=== PATIENT | female | born 1945 | race Caucasian/White ===

== ENCOUNTER 2019-08-29 02:50 | Observation (INO) ==
[2019-08-29] MEDS ORDERED: *HR* Labetalol 20 MG/4 ML SYRINGE IVP ONE (05:05)
[2019-08-29] MEDS ORDERED: Nitroglycerin 0.4 MG TAB.SUBL SL PRN (05:05)
[2019-08-29] MEDS: *HR* Heparin 5,000 UNIT/ML VIAL SQ SCH ×2 (05:26→17:58)
[2019-08-29] MEDS ORDERED: Naloxone 0.4 MG/ML INJ IVP PRN (05:45)
[2019-08-29] MEDS ORDERED: Acetaminophen 325 MG TABLET PO PRN (05:45)
[2019-08-29 06:33] LABS: Basophils # 0.1 K/mcL (0.0-0.2); Basophils % 0.7 %; Eosinophils % 0.3 %; Hematocrit 40.2 % (35.3-44.9); Hemoglobin 12.8 g/dL (11.5-15.4); Immature Granulocytes % 0.2 % (0-4); Lymphocytes # 3.6 K/mcL (0.6-4.6); Lymphocytes % 34.2 %; Mean Corpuscular HGB Conc 31.8 g/dL (31.6-35.5); Mean Corpuscular Hemoglobin 29.1 pg (28.0-33.3); Mean Corpuscular Volume 91.4 fL (83.0-100.0); Mean Platelet Volume 12.4 fL (9.4-12.4); Monocytes # 0.6 K/mcL (0.0-1.3); Monocytes % 5.6 %; Neutrophils # 6.3 K/mcL (1.6-8.9); Platelet Count 281 K/mcL (140-400); Red Cell Distribution Width 18.6 % (11.5-14.5); White Blood Count 10.6 K/mcL (4.3-11.1)
[2019-08-29 06:36] LABS: INR 1.1; Prothrombin Time 12.9 Seconds (9.4-12.1)
[2019-08-29 06:39] LABS: Activated Partial Thrombo Time 28.9 Seconds (26.0-36.0)
[2019-08-29 07:00] LABS: Troponin I < 0.03 ng/mL (< 0.04)
[2019-08-29 07:02] LABS: BUN/Creatinine Ratio 27 (6-26); Blood Urea Nitrogen 18 mg/dL (8-23); Calcium 9.5 mg/dL (8.6-10.3); Carbon Dioxide 22 mEq/L (23-29); Chloride 109 mEq/L (98-107); Chol/HDL Ratio 3.9 (0-4.9); Cholesterol 157 mg/dL (< 200); Glucose 112 mg/dL (70-105); HDL Cholesterol 40 mg/dL (40-59); LDL Cholesterol,Calculated 102 mg/dL (0-99); Osmolality,Calculated 301 (280-300); Potassium 3.5 mEq/L (3.5-5.1); Sodium 144 mEq/L (136-145); Triglycerides 75 mg/dL (< 150); eGFR For African Americans > 60 (> 60); eGFR For Non-African Americans > 60 (> 60)
[2019-08-29 07:11] LABS: Thyroid Stimulating Hormone 1.373 mcIU/mL (0.340-5.600)
[2019-08-29 08:03] LABS: Estimated Average Glucose 137 mg/dl
[2019-08-29] MEDS ORDERED: *HR* LORazepam 2 MG/ML VIAL IVP PRN ×3 (09:13)
[2019-08-29] MEDS ORDERED: *HR* Promethazine 25 MG/ML VIAL IVP PRN (09:13)
[2019-08-29] MEDS ORDERED: Morphine Sulfate 2 MG/ML SYRINGE IVP ONE (09:13)
[2019-08-29] MEDS: *HR* OxyCODONE Immed Rel 5 MG TABLET PO PRN ×2 (12:28→19:50)
[2019-08-29] MEDS: amLODIPine 5 MG TABLET PO SCH (12:28)
[2019-08-29 18:04] LABS: Amphetamine Screen,Urine Positive ng/mL (Cutoff=1000); Barbiturate Screen,Urine Negative ng/mL (Cutoff=200); Benzodiazepines Screen,Urine Positive ng/mL (Cutoff=200); Cannabinoid Screen,Urine Negative ng/mL (Cutoff = 50); Cocaine Screen,Urine Positive ng/mL (Cutoff= 300); Opiate Screen,Urine Positive ng/mL (Cutoff=300); Phencyclidine Screen,Urine Negative ng/mL (Cutoff=25)
[2019-08-29] MEDS ORDERED: rOPINIRole 0.25 MG TABLET PO SCH (21:00)
[2019-08-29] MEDS ORDERED: Ondansetron 4 MG/2 ML VIAL IVP ONE (22:29)
[2019-08-30 04:55] LABS: Hematocrit 41.2 % (35.3-44.9); Hemoglobin 13.4 g/dL (11.5-15.4); Mean Corpuscular HGB Conc 32.5 g/dL (31.6-35.5); Mean Corpuscular Hemoglobin 29.1 pg (28.0-33.3); Mean Corpuscular Volume 89.4 fL (83.0-100.0); Mean Platelet Volume 12.2 fL (9.4-12.4); Platelet Count 279 K/mcL (140-400); Red Blood Count 4.61 M/mcL (3.82-4.97); Red Cell Distribution Width 18.6 % (11.5-14.5)
[2019-08-30 05:14] LABS: BUN/Creatinine Ratio 23 (6-26); Blood Urea Nitrogen 13 mg/dL (8-23); Calcium 9.2 mg/dL (8.6-10.3); Carbon Dioxide 23 mEq/L (23-29); Chloride 108 mEq/L (98-107); Glucose 99 mg/dL (70-105); Osmolality,Calculated 292 (280-300); Potassium 3.6 mEq/L (3.5-5.1); Sodium 141 mEq/L (136-145); eGFR For African Americans > 60 (> 60); eGFR For Non-African Americans > 60 (> 60)
[2019-08-30] MEDS: *HR* Heparin 5,000 UNIT/ML VIAL SQ SCH (05:23)
[2019-08-30] MEDS ORDERED: Regadenoson 0.4 MG/5 ML SYRINGE IVP ONE (06:31)
[2019-08-30] MEDS ORDERED: Folic Acid 1 MG TABLET PO SCH (09:00)
[2019-08-30] MEDS ORDERED: Vitamin B Complex/Vit C/Vit E 1 EACH TABLET PO SCH (09:00)
[2019-08-30] MEDS ORDERED: Thiamine (B-1) 100 MG TABLET PO SCH (09:00)
[2019-08-30] MEDS: amLODIPine 5 MG TABLET PO SCH (09:59)
[2019-08-30] MEDS: *HR* OxyCODONE Immed Rel 5 MG TABLET PO PRN (10:07)
[2019-08-30 11:59] VITALS: BP 145/91
== END 2019-08-30 14:36 | disposition home or self-care (01) ==
LOC: 3NENU → SUATTDRO 04:32 → 2NENU 04:57
PROVIDERS: ADMIT Internal Medicine; ATTEND Family Medicine